=== PATIENT | male | born 1980 | race African-American/Black ===

== ENCOUNTER 2019-01-04 19:59 | Emergency (ER) | payer MEDICAID, OTHER ==
[~2019-01-04] VITALS: Ht 167.6 cm; Wt 59.1 kg
[2019-01-04 20:37] LABS: APPEARANCE,URINE CLEAR (CLEAR); BILIRUBIN,URINE NEGATIVE (NEGATIVE); GLUCOSE, URINE (UA) NEGATIVE (NEGATIVE); KETONES,URINE NEGATIVE (NEGATIVE); LEUKOCYTE ESTERASE ,URINE NEGATIVE (NEGATIVE); NITRATE,URINE NEGATIVE (NEGATIVE); OCCULT BLOOD,URINE NEGATIVE (NEGATIVE); PROTEIN,URINE NEGATIVE (NEGATIVE)
[2019-01-04] MEDS ORDERED: AZITHROMYCIN 250 MG TABLET PO ONE (21:15)
[2019-01-04] MEDS ORDERED: CefTRIAXone SODIUM 1 GM/VIAL IM ONE (21:15)
[2019-01-04 22:10] VITALS: BP 135/80
== END 2019-01-04 22:16 | disposition home or self-care (01) ==
LOC: EMS 20:02
DX: N34.2 Other urethritis (principal)
CPT/HCPCS: 81003; 96372; 99283; J0696

== ENCOUNTER 2021-05-23 18:19 | Emergency (ER) | payer MEDICAID ==
[~2021-05-23] VITALS: Ht 167.6 cm; Wt 75.0 kg
[2021-05-23 19:47] LABS: APPEARANCE,URINE CLEAR (CLEAR); BILIRUBIN,URINE NEGATIVE (NEGATIVE); GLUCOSE, URINE (UA) NEGATIVE (NEGATIVE); KETONES,URINE NEGATIVE (NEGATIVE); LEUKOCYTE ESTERASE ,URINE NEGATIVE (NEGATIVE); NITRATE,URINE NEGATIVE (NEGATIVE); OCCULT BLOOD,URINE NEGATIVE (NEGATIVE); PH,URINE 6.5 (5.0-8.0); PROTEIN,URINE NEGATIVE (NEGATIVE)
[2021-05-23 19:59] LABS: BACTERIA,URINE None Seen /HPF (None Seen); RBC,URINE None Seen /HPF (0-2); WBC,URINE None Seen /HPF (0-5)
[2021-05-23 21:02] LABS: GLUCOMETER DEV NAME(LOC) ERT.5; GLUCOSE,POINT OF CARE 90 MG/DL (70-110)
[2021-05-23 21:24] VITALS: BP 125/75
== END 2021-05-23 21:24 | disposition home or self-care (01) ==
LOC: EMS 18:22
DX: R35.0 Frequency of micturition (principal)
CPT/HCPCS: 81001; 82948; 82962; 99283